=== PATIENT | female | born 1975 | race Caucasian/White ===

== ENCOUNTER → 2017-06-05 | Outpatient (CLI) | payer MEDICAID | LOC: FIMAGING 15:59 | PROVIDERS: ATTEND Midwife | DX: D25.2 Subserosal leiomyoma of uterus (principal); N88.8 Other specified noninflammatory disorders of cervix uteri ==

== ENCOUNTER 2017-10-06 08:57 | Inpatient (IN) | payer MEDICAID ==
--- NOTE | 2017-10-06 09:18 | EDPHY ---
H & P Stated Complaint: Generalised Abdo pain since 9pm, feels bloated. HPI/ROS: CHIEF COMPLAINT: Abdominal bloating and pain HISTORY OF PRESENT ILLNESS: The patient is a 42 y/o female arriving with her son complaining of worsening diffuse abdominal bloating and pain that began at 21:00 last night, 12.5 hours ago. She has a history of PCOS, endometriosis, and one episode of non-alcoholic pancreatitis 2 years ago that lead to a cholecystectomy. Since that surgery she gets "horrific pain attacks" in her RUQ with associated belching, flatulence, and nausea that aligns with her menstrual cycle. Her pain today feels different to her than those episodes. She says, "I feel like a balloon that is going to pop; like there is a giant pain bubble in my stomach." Her pain is worst in her midepigastrium. She has associated belching and flatulence with no relief. She had a normal, non-bloody bowel movement 3.5 hours ago. She feels nauseated, but has not vomited. Her pain is alleviated slightly by lying flat or standing. No urinary complaints or fever. Her last menstrual period was 2 weeks ago. REVIEW OF SYSTEMS: A ten point review of systems was performed and is negative with the exception of the items mentioned in the HPI. Past medical history: One episode of non-alcoholic pancreatitis prompting cholecystectomy; PCOS and endometriosis Past surgical history: Cholecystectomy 2 years ago, appendectomy, exploratory laparotomy Family history: Noncontributory Social history: Son at bedside. PCP: Dr. Loredo. General Appearance: Alert. Vital signs reviewed. BP 126/94. Eyes: Pupils equal and round, no conjunctival injection, no discharge. Anicteric. ENT, Mouth: Mucous membranes are moist, no oropharyngeal erythema or edema. Neck: No lymphadenopathy, supple. Respiratory: Lungs are clear to auscultation; no wheezes, rales, or rhonchi. Cardiovascular: Regular rate and rhythm; no murmur, rub, or gallop. Gastrointestinal: Abdomen is soft, diffusely tender, no masses or organomegaly , bowel sounds hypoactive. Skin: Warm and dry, no rashes on exposed skin, normal color. Back: Nontender to palpation over the thoracolumbar spine. No CVAT. Extremities: No lower extremity edema, no calf tenderness or swelling. Neurological: Alert and oriented. Moving all four extremities easily and equally. Psychiatric: Normal affect. - Personal History LMP (Females 10-55): 1-7 Days Ago Current Tetanus Diphtheria and Acellular Pertussis (TDAP): Yes - Medical/Surgical History Hx Asthma: No Hx Chronic Respiratory Disease: No Hx Diabetes: No Hx Cardiac Disease: No Hx Renal Disease: No Hx Cirrhosis: No Hx Alcoholism: No Hx HIV/AIDS: No Hx Splenectomy or Spleen Trauma: No Other PMH: Appendectomy, cholecystectomy, pancreatitis, , endometriosis. - Social History Smoking Status: Former smoker Constitutional: Initial Vital Signs Temperature (C) 36.4 C 10/06/17 09:02 Heart Rate 88 10/06/17 09:02 Respiratory Rate 18 10/06/17 09:02 Blood Pressure 126/94 H 10/06/17 09:02 O2 Sat (%) 93 10/06/17 09:02 O2 Delivery Mode Room Air Allergies/Adverse Reactions: Penicillins Allergy (Unknown, Verified 07/31/16 13:13) Medical Decision Making ED Course/Re-evaluation: This is a 42 y/o female with a history of endometriosis, PCOS, and recurrent RUQ abdominal pain 2 year post cholecystectomy who presents with a 12.5 hour history of epigastric pain and bloating. She is still able to belch and had a normal bowel movement this morning. No vomiting. She has a diffusely tender abdomen on exam. Plan for IV, labs, UA, and symptom management. 100mcg IV Fentanyl and 4mg IV Zofran administered. 1035: Reevaluated patient. She feels only mildly better and continues to have pain. Her lipase is elevated at 1771, which indicates pancreatitis. This is consistent with her presentation and I have recommended admission, which she agrees to. 1145: Spoke with hospitalist service. Dr. Petit accepts admission. 1210: 0.5mg IV Dilaudid administered for pain. - Data Points Laboratory Results: Laboratory Results 10/06/17 09:55 10/06/17 09:55 10/06/17 10/06/17 10/06/17 11:10 09:55 09:55 WBC RBC Hgb Hct MCV MCH MCHC RDW Plt Count MPV Neut % (Auto) Lymph % (Auto) [place] % (Auto) Eos % (Auto) Baso % (Auto) Nucleat RBC Rel Count Absolute Neuts (auto) Absolute Lymphs (auto) Absolute Monos (auto) Absolute Eos (auto) Absolute Basos (auto) Absolute Nucleated RBC Immature Gran % Immature Gran # Sodium 141 mEq/L mEq/L (134-144) Potassium 4.0 mEq/L mEq/L (3.5-5.2) Chloride 107 mEq/L mEq/L (97-110) Carbon Dioxide 23 mEq/l mEq/l (22-31) Anion Gap 11 mEq/L mEq/L (8-16) BUN 14 mg/dL mg/dL (7-23) Creatinine 0.6 mg/dL mg/dL (0.6-1.0) Estimated GFR > 60 Glucose 90 mg/dL mg/dL (70-100) Calcium 9.0 mg/dL mg/dL (8.5-10.4) Total Bilirubin 0.5 mg/dL mg/dL (0.1-1.4) Conjugated Bilirubin 0.2 mg/dL mg/dL (0.0-0.5) Unconjugated Bilirubin 0.3 mg/dL mg/dL (0.0-1.1) AST 20 IU/L IU/L (14-46) ALT 36 IU/L IU/L (9-52) Alkaline Phosphatase 51 IU/L IU/L (38-126) Total Protein 6.3 g/dL g/dL (6.3-8.2) Albumin 3.7 g/dL g/dL (3.5-5.0) Lipase 1771 IU/L H IU/L (23-300) Beta HCG, Qual NEGATIVE Urine Color YELLOW Urine Appearance HAZY Urine pH 5.0 (5.0-7.5) Ur Specific [place] 1.023 (1.002-1.030) Urine Protein NEGATIVE (NEGATIVE) Urine Ketones NEGATIVE (NEGATIVE) Urine Blood 2+ H (NEGATIVE) Urine Nitrate NEGATIVE (NEGATIVE) Urine Bilirubin NEGATIVE (NEGATIVE) Urine Urobilinogen NEGATIVE EU EU (0.2-1.0) Ur Leukocyte Esterase NEGATIVE (NEGATIVE) Urine RBC 3-5 /hpf H /hpf (0-3) Urine WBC 1-3 /hpf /hpf (0-3) Ur Epithelial Cells 1+ /lpf /lpf (NONE-1+) Urine Mucus 1+ /lpf /lpf (NONE-1+) Urine Glucose NEGATIVE (NEGATIVE) 10/06/17 09:55 WBC 9.66 10^3/uL H 10^3/uL (3.80-9.50) RBC 4.44 10^6/uL 10^6/uL (4.18-5.33) Hgb 13.1 g/dL g/dL (12.6-16.3) Hct 38.5 % % (38.0-47.0) MCV 86.7 fL fL (81.5-99.8) MCH 29.5 pg pg (27.9-34.1) MCHC 34.0 g/dL g/dL (32.4-36.7) RDW 11.9 % % (11.5-15.2) Plt Count 303 10^3/uL 10^3/uL (150-400) MPV 9.9 fL fL (8.7-11.7) Neut % (Auto) 64.8 % % (39.3-74.2) Lymph % (Auto) 23.2 % % (15.0-45.0) [place] % (Auto) 6.7 % % (4.5-13.0) Eos % (Auto) 4.6 % % (0.6-7.6) Baso % (Auto) 0.5 % % (0.3-1.7) Nucleat RBC Rel Count 0.0 % % (0.0-0.2) Absolute Neuts (auto) 6.26 10^3/uL 10^3/uL (1.70-6.50) Absolute Lymphs (auto) 2.24 10^3/uL 10^3/uL (1.00-3.00) Absolute Monos (auto) 0.65 10^3/uL 10^3/uL (0.30-0.80) Absolute Eos (auto) 0.44 10^3/uL H 10^3/uL (0.03-0.40) Absolute Basos (auto) 0.05 10^3/uL 10^3/uL (0.02-0.10) Absolute Nucleated RBC 0.00 10^3/uL 10^3/uL (0-0.01) Immature Gran % 0.2 % % (0.0-1.1) Immature Gran # 0.02 10^3/uL 10^3/uL (0.00-0.10) Sodium Potassium Chloride Carbon Dioxide Anion Gap BUN Creatinine Estimated GFR Glucose Calcium Total Bilirubin Conjugated Bilirubin Unconjugated Bilirubin AST ALT Alkaline Phosphatase Total Protein Albumin Lipase Beta HCG, Qual Urine Color Urine Appearance Urine pH Ur Specific [place] Urine Protein Urine Ketones Urine Blood Urine Nitrate Urine Bilirubin Urine Urobilinogen Ur Leukocyte Esterase Urine RBC Urine WBC Ur Epithelial Cells Urine Mucus Urine Glucose Medications Given: Discontinued Medications Fentanyl (Sublimaze) 100 mcg IVP EDNOW ONE Stop: 10/06/17 09:39 Last Admin: 10/06/17 09:55 Dose: 100 mcg Ondansetron HCl (Zofran) 4 mg IVP EDNOW ONE Stop: 10/06/17 09:39 Last Admin: 10/06/17 09:55 Dose: 4 mg Departure - Departure Disposition: [facility] Inpatient Acute Clinical Impression: Pancreatitis Qualifiers: Chronicity: acute Pancreatitis type: other Acute pancreatitis complication: unspecified Qualified Code(s): K85.80 - Other acute pancreatitis without necrosis or infection Condition: Fair Referrals: Andree Loredo MD [Primary Care Provider] - As per Instructions Physician Review and Approval Statement: 10/06/17 09:17 Portions of this note were transcribed by the medical officer. I, Dr. Jessica Simon, personally performed the history, physical exam, and medical decision- making; and confirmed the accuracy of the information in the transcribed note.
[2017-10-06] MEDS ORDERED: fentaNYL 100 MCG/2 ML INJ IVP ONE ×2 (09:38→12:51)
[2017-10-06] MEDS ORDERED: ONDANSETRON 4 MG/2 ML VIAL IVP ONE ×2 (09:38→12:52)
[2017-10-06 10:25] LABS: PLATELET COUNT 303 10^3/uL (150-400)
[2017-10-06] MEDS ORDERED: HYDROmorphONE/DILAUDID 1 MG/ML INJ IVP ONE (12:07)
[2017-10-06] MEDS ORDERED: fentaNYL 100 MCG/2 ML INJ ONE (12:45)
[2017-10-06] MEDS ORDERED: ONDANSETRON 4 MG/2 ML VIAL ONE (12:45)
[2017-10-06] MEDS ORDERED: KETOROLAC 15 MG/1 ML SDV IVP ONE (13:04)
[2017-10-06] MEDS ORDERED: KETOROLAC 15 MG/1 ML SDV ONE (13:06)
--- NOTE | 2017-10-06 14:28 | PDGENHP ---
History and Physical - Chief Complaint Abdominal pain - History of Present Illness This is a 42-year-old female with history of idiopathic pancreatitis presenting to the emergency department today with abdominal pain. The pain started at 9: 00 p.m. last night and was initially described as diffuse and felt like gas and indigestion. The pain worsened throughout the night. As worst was a 10/10 sharp stabbing pain in her epigastrium radiating to her back and neck. She has had some nausea but no vomiting. Her last bowel movement was this morning. Last menstrual period and to few days ago. She does tend to have bouts of abdominal pain that are associated with her menses. She denies any alcohol use. She stop smoking. History Information - Allergies/Home Medication List Allergies/Adverse Reactions: Penicillins Allergy (Unknown, Verified 07/31/16 13:13) Home Medications: Ibuprofen [Motrin (*)] 400 - 600 mg PO Q8H PRN 10/06/17 [Last Taken 10/05/17 400MG] I have personally reviewed and updated: family history, medical history, social history, surgical history - Past Medical History Additional medical history: Morbid obesity, hypertriglyceridemia, endometriosis , polycystic ovarian syndrome - Surgical History Reports: appendectomy (2000), cholecystectomy (2014) - Family History Additional family history: Alcohol abuse - Social History Smoking Status: Former smoker Alcohol Use: None Drug Use: None Review of Systems Review of Systems: ROS: 10pt was reviewed & negative except for what was stated in HPI & below Physical Exam Physical Exam: Temp Pulse Resp BP Pulse Ox 36.7 C 69 16 115/90 H 93 10/06/17 14:00 10/06/17 14:00 10/06/17 14:00 10/06/17 14:00 10/06/17 14:00 Constitutional: no apparent distress, appears nourished, not in pain Eyes: PERRL, anicteric sclera, EOMI Ears, Nose, Mouth, Throat: moist mucous membranes, hearing normal, ears appear normal, no oral mucosal ulcers Cardiovascular: regular rate and rhythym, no murmur, rub, or gallop, No edema Respiratory: no respiratory distress, no rales or rhonchi, clear to auscultation Gastrointestinal: normoactive bowel sounds, distension, other (Soft), No tenderness, No guarding, No rebound Genitourinary: no bladder fullness, no bladder tenderness Skin: warm, normal color, no rashes or abrasions, no fluctuance, no induration, No mottled Musculoskeletal: full muscle strength, no muscle tenderness, normal joint ROM, no joint effusions Neurologic: AAOx3, CN II-XII Intact, No facial droop Psychiatric: interacting appropriately, not anxious, not encephalopathic, thought process linear Lymph, Heme, Immunologic: no cervical LAD, no supraclavicular LAD Lab Data & Imaging Review 10/06/17 09:55 10/06/17 09:55 WBC 9.66 10^3/uL (3.80-9.50) H 10/06/17 09:55 RBC 4.44 10^6/uL (4.18-5.33) 10/06/17 09:55 Hgb 13.1 g/dL (12.6-16.3) 10/06/17 09:55 Hct 38.5 % (38.0-47.0) 10/06/17 09:55 MCV 86.7 fL (81.5-99.8) 10/06/17 09:55 MCH 29.5 pg (27.9-34.1) 10/06/17 09:55 MCHC 34.0 g/dL (32.4-36.7) 10/06/17 09:55 RDW 11.9 % (11.5-15.2) 10/06/17 09:55 Plt Count 303 10^3/uL (150-400) 10/06/17 09:55 MPV 9.9 fL (8.7-11.7) 10/06/17 09:55 Neut % (Auto) 64.8 % (39.3-74.2) 10/06/17 09:55 Lymph % (Auto) 23.2 % (15.0-45.0) 10/06/17 09:55 [place] % (Auto) 6.7 % (4.5-13.0) 10/06/17 09:55 Eos % (Auto) 4.6 % (0.6-7.6) 10/06/17 09:55 Baso % (Auto) 0.5 % (0.3-1.7) 10/06/17 09:55 Nucleat RBC Rel Count 0.0 % (0.0-0.2) 10/06/17 09:55 Absolute Neuts (auto) 6.26 10^3/uL (1.70-6.50) 10/06/17 09:55 Absolute Lymphs (auto) 2.24 10^3/uL (1.00-3.00) 10/06/17 09:55 Absolute Monos (auto) 0.65 10^3/uL (0.30-0.80) 10/06/17 09:55 Absolute Eos (auto) 0.44 10^3/uL (0.03-0.40) H 10/06/17 09:55 Absolute Basos (auto) 0.05 10^3/uL (0.02-0.10) 10/06/17 09:55 Absolute Nucleated RBC 0.00 10^3/uL (0-0.01) 10/06/17 09:55 Immature Gran % 0.2 % (0.0-1.1) 10/06/17 09:55 Immature Gran # 0.02 10^3/uL (0.00-0.10) 10/06/17 09:55 Sodium 141 mEq/L (134-144) 10/06/17 09:55 Potassium 4.0 mEq/L (3.5-5.2) 10/06/17 09:55 Chloride 107 mEq/L (97-110) 10/06/17 09:55 Carbon Dioxide 23 mEq/l (22-31) 10/06/17 09:55 Anion Gap 11 mEq/L (8-16) 10/06/17 09:55 BUN 14 mg/dL (7-23) 10/06/17 09:55 Creatinine 0.6 mg/dL (0.6-1.0) 10/06/17 09:55 Estimated GFR > 60 10/06/17 09:55 Glucose 90 mg/dL (70-100) 10/06/17 09:55 Calcium 9.0 mg/dL (8.5-10.4) 10/06/17 09:55 Total Bilirubin 0.5 mg/dL (0.1-1.4) 10/06/17 09:55 Conjugated Bilirubin 0.2 mg/dL (0.0-0.5) 10/06/17 09:55 Unconjugated Bilirubin 0.3 mg/dL (0.0-1.1) 10/06/17 09:55 AST 20 IU/L (14-46) 10/06/17 09:55 ALT 36 IU/L (9-52) 10/06/17 09:55 Alkaline Phosphatase 51 IU/L (38-126) 10/06/17 09:55 Total Protein 6.3 g/dL (6.3-8.2) 10/06/17 09:55 Albumin 3.7 g/dL (3.5-5.0) 10/06/17 09:55 Lipase 1771 IU/L (23-300) H 10/06/17 09:55 Beta HCG, Qual NEGATIVE 10/06/17 09:55 Urine Color YELLOW 10/06/17 11:10 Urine Appearance HAZY 10/06/17 11:10 Urine pH 5.0 (5.0-7.5) 10/06/17 11:10 Ur Specific [place] 1.023 (1.002-1.030) 10/06/17 11:10 Urine Protein NEGATIVE (NEGATIVE) 10/06/17 11:10 Urine Ketones NEGATIVE (NEGATIVE) 10/06/17 11:10 Urine Blood 2+ (NEGATIVE) H 10/06/17 11:10 Urine Nitrate NEGATIVE (NEGATIVE) 10/06/17 11:10 Urine Bilirubin NEGATIVE (NEGATIVE) 10/06/17 11:10 Urine Urobilinogen NEGATIVE EU (0.2-1.0) 10/06/17 11:10 Ur Leukocyte Esterase NEGATIVE (NEGATIVE) 10/06/17 11:10 Urine RBC 3-5 /hpf (0-3) H 10/06/17 11:10 Urine WBC 1-3 /hpf (0-3) 10/06/17 11:10 Ur Epithelial Cells 1+ /lpf (NONE-1+) 10/06/17 11:10 Urine Mucus 1+ /lpf (NONE-1+) 10/06/17 11:10 Urine Glucose NEGATIVE (NEGATIVE) 10/06/17 11:10 Assessment & Plan Assessment: This is a 42-year-old female with history of idiopathic pancreatitis presenting with: # abdominal pain in the setting of elevated lipase most consistent with pancreatitis of unclear etiology -start clear liquid diet -IV hydration -treat pain and nausea supportively with both oral, IV pain medications, and antiemetics -check triglyceride level -monitor for signs and symptoms of obstruction Patient will be placed on observation. Further hospital course will depend on her improvement overnight
[2017-10-06] MEDS ORDERED: KETOROLAC 30 MG/1 ML SDV IVP PRN (14:30)
[2017-10-06] MEDS ORDERED: ACETAMINOPHEN 325 MG TAB PO PRN (14:30)
[2017-10-06] MEDS ORDERED: HYDROmorphONE/DILAUDID 2 MG/ML INJ IVP PRN (14:30)
[2017-10-06] MEDS ORDERED: PROMETHAZINE HCL 25 MG/ML INJ IVP PRN (14:30)
[2017-10-06] MEDS: oxyCODONE IR 5 MG TAB PO PRN ×2 (15:06→19:42)
[2017-10-06] MEDS: NS 1,000 ML IV SCH ×2 (15:10→19:31)
[2017-10-06] MEDS: KETOROLAC 30 MG/1 ML SDV IVP PRN (19:08)
[2017-10-06] MEDS: ONDANSETRON 4 MG/2 ML VIAL IVP PRN (20:43)
[2017-10-07] MEDS: ONDANSETRON 4 MG/2 ML VIAL IVP PRN ×2 (00:39→13:32)
[2017-10-07] MEDS: NS 1,000 ML IV SCH ×3 (00:39→20:34)
[2017-10-07] MEDS: KETOROLAC 30 MG/1 ML SDV IVP PRN ×4 (00:42→20:31)
[2017-10-07] MEDS: oxyCODONE IR 5 MG TAB PO PRN ×2 (00:46→13:28)
[2017-10-07 04:13] LABS: PLATELET COUNT 246 10^3/uL (150-400)
--- NOTE | 2017-10-07 09:48 | ASMTCMCOM ---
CM Note CM Note Notes: 10/06/2017 Case Management Note Reviewed chart. There are no case management d/c needs identified d/t pt age, employment status and activity levels prior to admission. There are no PT or OT evals ordered at this time. Case Management d/c poc: independent with follow up as directed. Case Management available if needs change. Date Signed: 10/07/2017 09:47 AM Electronically Signed By:Josefa Patel RN
--- NOTE | 2017-10-07 13:06 | HOSPPROG ---
Hospitalist Progress Note Assessment/Plan: This is a 42-year-old female with history of idiopathic pancreatitis presenting with: # abdominal pain in the setting of elevated lipase most consistent with pancreatitis of unclear etiology vs sbo (still not taking adequate Pos) -cont clear liquid diet -IV hydration -treat pain and nausea supportively with both oral, IV pain medications, and antiemetics -kub change to inpatient status Subjective: continues to have abd pain and bloating. reports minimal flatus. belching. not eating or drinking. no emesis Objective: Vital Signs Temp Pulse Resp BP Pulse Ox 36.9 C 69 17 116/63 90 L 10/07/17 11:50 10/07/17 11:50 10/07/17 11:50 10/07/17 11:50 10/07/17 11:50 Laboratory Results 10/07/17 03:27 10/07/17 03:27 10/06/17 10/07/17 10/08/17 05:59 05:59 05:59 Intake Total 2620 Output Total 500 Balance 2120 - Physical Exam Constitutional: no apparent distress, appears nourished, not in pain Cardiovascular: regular rate and rhythym, no murmur, rub, or gallop Respiratory: no respiratory distress, no rales or rhonchi, clear to auscultation Gastrointestinal: normoactive bowel sounds, soft, non-tender abdomen, tenderness (diffuse), distension, No guarding, No rebound ICD10 Worksheet Patient Problems: Problems Problem Status Onset Abdominal pain Acute Morbid obesity Acute Intractable abdominal pain Acute Pancreatitis Acute
--- NOTE | 2017-10-07 13:24 | PDMN ---
Medical Necessity Medical necessity: C/M review: est. > 2 MN LOS for eval and TX of acute and persistent abdominal pain in the setting of elevated lipase most consistent with pancreatitis of unclear etiology versus small bowel obstruction, inadequate oral intake requiring planned 10/07/2017 KUB xray, ongoing IV fluids , IV pain medications, antiemetics, comorbid history of idiopathic pancreatitis per 10/07/2017 Hospitalist progress note.
[2017-10-07] MEDS ORDERED: HYDROmorphONE/DILAUDID 1 MG/ML INJ IVP PRN (16:00)
[2017-10-07] MEDS: SIMETHICONE 80 MG TAB CHEW PO SCH ×2 (20:30→20:31)
[2017-10-08] MEDS: KETOROLAC 30 MG/1 ML SDV IVP PRN ×4 (02:29→21:29)
[2017-10-08 04:55] LABS: PLATELET COUNT 221 10^3/uL (150-400)
[2017-10-08] MEDS: SIMETHICONE 80 MG TAB CHEW PO SCH ×4 (08:45→21:25)
[2017-10-08] MEDS: ENOXAPARIN 40 MG/0.4 ML SYR SC SCH ×2 (08:48→21:25)
[2017-10-08] MEDS ORDERED: IOPAMIDOL (ISOVUE-300) 100 ML BTL ONE (12:29)
[2017-10-08] MEDS ORDERED: GADOBUTROL 10 ML VIAL IVP ONE (14:21)
--- NOTE | 2017-10-08 16:55 | HOSPPROG ---
Hospitalist Progress Note Assessment/Plan: * SBO - suspect transient internal hernia that is now resolved -advance diet * Morbid obesity BMI 42 * ? autoimmune pancreatitis -abnormal appearance by imaging * Chronic RUQ pain s/p carlos -this pain is different than usual Subjective: abd distention without relief. After CT now with diarrhea Objective: Vital Signs Temp Pulse Resp BP Pulse Ox 36.7 C 54 L 16 123/66 H 93 10/08/17 16:00 10/08/17 16:00 10/08/17 16:00 10/08/17 16:00 10/08/17 16:00 Laboratory Results 10/08/17 04:39 10/08/17 04:39 10/07/17 10/08/17 10/09/17 05:59 05:59 05:59 Intake Total 959 1000 Output Total 775 Balance 184 1000 - Physical Exam Constitutional: no apparent distress, appears nourished, not in pain Cardiovascular: regular rate and rhythym, no murmur, rub, or gallop Respiratory: no respiratory distress, no rales or rhonchi, clear to auscultation Gastrointestinal: normoactive bowel sounds, soft, non-tender abdomen, no palpable masses Skin: no rashes or abrasions, no fluctuance, no induration Neurologic: AAOx3, sensation intact bilaterally Psychiatric: interacting appropriately, not anxious, not encephalopathic, thought process linear ICD10 Worksheet Patient Problems: Problems Problem Status Onset Pancreatitis Acute Abdominal pain Acute Intractable abdominal pain Acute Morbid obesity Acute
[2017-10-09 07:40] VITALS: BP 144/108; PULSE 71; RESP 16; TEMP 98.1; O2SAT 96
[2017-10-09] MEDS: SIMETHICONE 80 MG TAB CHEW PO SCH (09:35)
[2017-10-09] MEDS: ENOXAPARIN 40 MG/0.4 ML SYR SC SCH (09:36)
[2017-10-09] MEDS: KETOROLAC 30 MG/1 ML SDV IVP PRN (09:56)
--- NOTE | 2017-10-10 09:33 | ASDISCHSUM ---
Discharge Information Plan Status:Home with No Needs Medically Cleared to Leave:10/08/2017 Discharge Date:10/09/2017 11:07 AM CM D/C Disposition:Home, Routine, Self-Care ADT D/C Disposition:Home, Routine, Self-Care Projected Discharge Date:10/09/2017 11:00 AM Transportation at D/C:Self Discharge Delay Reason: Follow-Up Date:10/09/2017 11:00 AM Discharge Slot:1 - 8:01 am - 12:00 noon Final Diagnosis:Abdominal pain Placement Information Patient Contact Information Contact Name:GONZALO Relationship:Mother Address: City:[place] Alternate Phone: State/Zip Code:[place] Email: Financial Information Financial Class: Primary Plan Desc:[employer] [place] Primary Plan Number:[id number] Secondary Plan Desc: Secondary Plan Number: Assessment Information [facility] CM Progress Note CM Note CM Note Notes: 10/06/2017 Case Management Note Reviewed chart. There are no case management d/c needs identified d/t pt age, employment status and activity levels prior to admission. There are no PT or OT evals ordered at this time. Case Management d/c poc: independent with follow up as directed. Case Management available if needs change. Date Signed: 10/07/2017 09:47 AM Electronically Signed By:Josefa Patel RN Case Management Discharge Plan Note Case Management Discharge Discharge Order Complete? Answers: Yes Patient to Obtain Answers: Independently Medications Transportation Arranged Answers: Other Notes: Self Transport will Pick (Date 10/09/2017 11:00 AM & Time) Discharge Comments Notes: Patient has been discharged. No discharge needs. Date Signed: 10/09/2017 10:56 AM Electronically Signed By:Harmony Sesay LCSW Intervention Information
--- NOTE | 2017-10-12 01:15 | GDS ---
[f rep st] DISCHARGE SUMMARY SERVICE: [facility] Hospitalist. CONSULTS: None. PROCEDURES: Abdominal MRI, abdominal CT. Abdominal x-ray: Partial/early small bowel obstruction. P ossible new mass versus unusual knuckle of bowel anterior to the inferior vena cava on CT. MRI of th at region shows transient gas, dilated loop of bowel, question transiently obstructed internal hernia or small-bowel diverticulum. No mass noted on abdominal MRI. ADMISSION DIAGNOSIS: Abdominal pain, concerning for recurrent pancreatitis. DISCHARGE DIAGNOSIS: Abdominal pain, concerning for recurrent pancreatitis, resolved. HOSPITAL COURSE: The patient came to the emergency department because of worsening abdominal pain an d nausea. She has a history of idiopathic pancreatitis and was admitted for IV fluids and further ev aluation. She was started on a clear liquid diet and given IV hydration and IV pain medications. Liliana lindsay also required IV antiemetics. Several imaging studies were done, as noted above. Initial lipase w as 177. Over the course of her stay, her symptoms greatly improved and, on the day of discharge, liliana lindsay was tolerating a diet with minimal pain or nausea. She was discharged home to follow up with her [facility] care provider, Dr. Mariel Loredo. It was also suggested that she follow up with her gastroenter ologist. DISCHARGE MEDICATIONS: Ibuprofen if needed. DISCHARGE INSTRUCTIONS: She is instructed to continue with a fairly bland diet and gradually return to regular diet over the course of several days. If any time she had worsening pain, onset of fever, diarrhea, vomiting, or other concerns, she should return to the emergency department for re-evaluati on or to her primary care provider. She is instructed to follow up with Dr. Loredo within the next 3 -5 days and with her executive account manager after that (regarding possible internal hernia noted on MRI). /[id number]/MODL
== END 2017-10-09 11:07 | disposition home or self-care (01) | DRG 439 ==
LOC: F2W 13:48 → OBSVTOIN 10-07 13:06 → F3N 10-07 17:36
PROVIDERS: ADMIT Family Medicine; ATTEND Family Medicine
DX: K86.1 Other chronic pancreatitis (principal); K56.600 Partial intestinal obstruction, unspecified as to cause; K46.9 Unspecified abdominal hernia without obstruction or gangrene; E66.01 Morbid (severe) obesity due to excess calories; Z68.42 Body mass index [BMI] 45.0-49.9, adult; R14.0 Abdominal distension (gaseous); R10.84 Generalized abdominal pain; Z87.891 Personal history of nicotine dependence; Z87.42 Personal history of other diseases of the female genital tract
CPT/HCPCS: A9585; G0378; J1170; J1650; J1885; J2405; J2550; J3010; Q9967

== ENCOUNTER 2018-07-19 05:32 | Observation (INO) | payer MEDICAID ==
[2018-07-19] MEDS ORDERED: ONDANSETRON 4 MG/2 ML VIAL IVP ONE (05:43)
[2018-07-19] MEDS ORDERED: NS 1,000 ML IV ONE (05:43)
--- NOTE | 2018-07-19 05:45 | EDPHY ---
H & P Stated Complaint: PAIN TO RUQ JUST LIKE WHEN HER GALLBLADDER WAS REMOVED Time Seen by Provider: 07/19/18 05:38 HPI/ROS: HPI The patient presents with acute onset of right upper quadrant abdominal pain which began at 4:00 a.m. And awoke her from sleep. She has had multiple similar episodes, usually able to tolerate them at home, however this is more severe. She took a shower with hopes that the pain would go away, however it persisted. It is associated with nausea and vomiting. Her menstrual cycle began about 7 days ago and now has stopped. She has had pain over the last several days though has been able to manage it at home. She sometimes notes that when she rolls her abdomen on an exercise ball she is able to belch and the pain is improved. She was last admitted to the hospital in October of this year. She underwent abdominal CT scan an MR I. MRI revealed possible internal hernia or small-bowel diverticulum. She improved after several days of treatment. She was supposed to follow up with GI, however did not; she felt discouraged after having normal endoscopy and colonoscopy with them previously. She is followed by geology instructor and does have a history of PCOS and endometriosis which was diagnosed in 1998. However her equipment cleaner does not think this abdominal pain is related to either of these. REVIEW OF SYSTEMS 10 systems were reviewed and negative with the exception of the elements mentioned in the history of present illness. PMHx: Endometriosis, PCOS, idiopathic pancreatitis, primary care is Dr. Loredo Status post cholecystectomy about 3 years ago after non alcoholic pancreatitis episode, status post appendectomy, exploratory laparotomy Soc Hx: Here with her roommate and co-worker PHYSICAL General Appearance: Alert, uncomfortable, diaphoretic Eyes: Pupils equal and round no pallor or injection ENT, Mouth: Mucous membranes moist Respiratory: There are no retractions, lungs are clear to auscultation Cardiovascular: Regular rate and rhythm Gastrointestinal: Abdomen is soft and tender in the epigastrium and right upper quadrant, no masses, bowel sounds normal Neurological: A&O, moves all extremities Skin: Warm and dry, no rashes Musculoskeletal: Neck is supple non tender Extremities: symmetrical, full range of motion Psychiatric: Patient is oriented X 3, there is no agitation Source: Patient Exam Limitations: No limitations - Personal History LMP (Females 10-55): 1-7 Days Ago Current Tetanus/Diphtheria Vaccine: Yes Current Tetanus Diphtheria and Acellular Pertussis (TDAP): Yes - Medical/Surgical History Hx Asthma: No Hx Chronic Respiratory Disease: No Hx Diabetes: No Hx Cardiac Disease: No Hx Renal Disease: No Hx Cirrhosis: No Hx Alcoholism: No Hx HIV/AIDS: No Hx Splenectomy or Spleen Trauma: No Other PMH: Appendectomy, cholecystectomy, pancreatitis, , endometriosis. - Social History Smoking Status: Former smoker Constitutional: Initial Vital Signs Temperature (C) 36.5 C 07/19/18 05:37 Heart Rate 89 07/19/18 05:37 Respiratory Rate 18 07/19/18 05:37 Blood Pressure 130/75 H 07/19/18 05:37 O2 Sat (%) 98 07/19/18 05:37 O2 Delivery Mode Room Air Allergies/Adverse Reactions: Penicillins Allergy (Unknown, Verified 07/19/18 05:39) Home Medications: Medication Instructions Recorded Ibuprofen [Motrin (*)] 400 - 600 mg PO Q8H PRN 10/06/17 Medical Decision Making Differential Diagnosis: 42-year-old female with obesity, history of idiopathic pancreatitis, 3 years status post cholecystectomy, status post appendectomy, history of endometriosis and PCOS presents from home with severe episode of right upper quadrant abdominal pain associated with nausea and vomiting. This feels like prior episodes that she has had without clearcut cause of pain. Often times she is able to manage them at home, however in times like this morning the pain is so severe that she cannot tolerate it. She does notice some correlation with her menstrual cycle. She was admitted to the hospital about 10 months ago and was found to have an internal hernia on her MRI though she has not had follow-up for this. The cause of her pain is not entirely clear right now, could be related to idiopathic pancreatitis, post cholecystectomy syndrome, endometriosis, internal hernia. In the emergency department, patient was given IV fluids, Dilaudid, Toradol with some improvement in her pain. Labs were checked and revealed a mild leukocytosis, lipase and liver tests are otherwise normal. Patient's pain quickly recurred and she needed repeat doses of Dilaudid. I do not feel she will do well at home. I have discussed the case with the hospitalist Dr. Hebert and we will admit her. We have decided to hold off on imaging studies now is the patient has had multiple recent CT scans of her abdomen. If she does not improved throughout the course of the day, then further imaging can be pursued. - Data Points Laboratory Results: Laboratory Results 07/19/18 06:07 07/19/18 06:07 07/19/18 07/19/18 06:07 06:07 WBC 13.87 10^3/uL H 10^3/uL (3.80-9.50) RBC 4.86 10^6/uL 10^6/uL (4.18-5.33) Hgb 14.0 g/dL g/dL (12.6-16.3) Hct 40.8 % % (38.0-47.0) MCV 84.0 fL fL (81.5-99.8) MCH 28.8 pg pg (27.9-34.1) MCHC 34.3 g/dL g/dL (32.4-36.7) RDW 12.0 % % (11.5-15.2) Plt Count 366 10^3/uL 10^3/uL (150-400) MPV 9.6 fL fL (8.7-11.7) Neut % (Auto) 68.6 % % (39.3-74.2) Lymph % (Auto) 20.8 % % (15.0-45.0) [place] % (Auto) 6.8 % % (4.5-13.0) Eos % (Auto) 3.0 % % (0.6-7.6) Baso % (Auto) 0.4 % % (0.3-1.7) Nucleat RBC Rel Count 0.0 % % (0.0-0.2) Absolute Neuts (auto) 9.53 10^3/uL H 10^3/uL (1.70-6.50) Absolute Lymphs (auto) 2.89 10^3/uL 10^3/uL (1.00-3.00) Absolute Monos (auto) 0.94 10^3/uL H 10^3/uL (0.30-0.80) Absolute Eos (auto) 0.41 10^3/uL H 10^3/uL (0.03-0.40) Absolute Basos (auto) 0.05 10^3/uL 10^3/uL (0.02-0.10) Absolute Nucleated RBC 0.00 10^3/uL 10^3/uL (0-0.01) Immature Gran % 0.4 % % (0.0-1.1) Immature Gran # 0.05 10^3/uL 10^3/uL (0.00-0.10) Sodium 140 mEq/L mEq/L (135-145) Potassium 3.2 mEq/L L mEq/L (3.3-5.0) Chloride 106 mEq/L mEq/L (97-110) Carbon Dioxide 20 mEq/l L mEq/l (22-31) Anion Gap 14 mEq/L mEq/L (8-16) BUN 15 mg/dL mg/dL (7-23) Creatinine 0.6 mg/dL mg/dL (0.6-1.0) Estimated GFR > 60 Glucose 160 mg/dL H mg/dL (70-100) Calcium 9.3 mg/dL mg/dL (8.5-10.4) Total Bilirubin 0.7 mg/dL mg/dL (0.1-1.4) Conjugated Bilirubin 0.2 mg/dL mg/dL (0.0-0.5) Unconjugated Bilirubin 0.5 mg/dL mg/dL (0.0-1.1) AST 30 IU/L IU/L (14-46) ALT 41 IU/L IU/L (9-52) Alkaline Phosphatase 60 IU/L IU/L (38-126) Total Protein 7.5 g/dL g/dL (6.3-8.2) Albumin 4.2 g/dL g/dL (3.5-5.0) Lipase 106 IU/L IU/L (23-300) Medications Given: Discontinued Medications Hydromorphone HCl (Dilaudid) 1 mg IVP EDNOW ONE Stop: 07/19/18 05:52 Last Admin: 07/19/18 05:55 Dose: 1 mg Hydromorphone HCl (Dilaudid) 1 mg IVP EDNOW ONE Stop: 07/19/18 06:32 Last Admin: 07/19/18 06:32 Dose: 1 mg Sodium Chloride (Ns) 1,000 mls @ 0 mls/hr IV EDNOW ONE; Wide Open PRN Reason: Protocol Stop: 07/19/18 05:44 Last Admin: 07/19/18 05:55 Dose: 1,000 mls Ketorolac Tromethamine (Toradol) 15 mg IVP EDNOW ONE Stop: 07/19/18 06:11 Last Admin: 07/19/18 06:10 Dose: 15 mg Ondansetron HCl (Zofran) 4 mg IVP EDNOW ONE Stop: 07/19/18 05:44 Last Admin: 07/19/18 05:50 Dose: 4 mg Departure - Departure Disposition: [facility] Inpatient Acute Clinical Impression: RUQ abdominal pain Vomiting Qualifiers: Vomiting type: unspecified Vomiting Intractability: non-intractable Nausea presence: with nausea Qualified Code(s): R11.2 - Nausea with vomiting, unspecified Condition: Fair Referrals: Andree Loredo MD [Primary Care Provider] - As per Instructions
[2018-07-19] MEDS ORDERED: HYDROmorphONE/DILAUDID 1 MG/ML INJ ONE (05:48)
[2018-07-19] MEDS ORDERED: HYDROmorphONE/DILAUDID 1 MG/ML INJ IVP ONE ×3 (05:51→11:05)
[2018-07-19] MEDS ORDERED: KETOROLAC 15 MG/1 ML SDV ONE (06:08)
[2018-07-19] MEDS ORDERED: KETOROLAC 15 MG/1 ML SDV IVP ONE (06:10)
[2018-07-19 06:13] LABS: PLATELET COUNT 366 10^3/uL (150-400)
[2018-07-19] MEDS ORDERED: ACETAMINOPHEN 325 MG TAB PO PRN (06:48)
[2018-07-19] MEDS ORDERED: ONDANSETRON DISINTEGRATING 4 MG TAB PO PRN (06:48)
[2018-07-19] MEDS ORDERED: HYDROCODONE/APAP 5/325 TAB PO PRN (06:48)
[2018-07-19] MEDS ORDERED: ONDANSETRON 4 MG/2 ML VIAL IVP PRN (06:48)
[2018-07-19] MEDS ORDERED: LORazepam 2 MG/ML INJ IVP PRN (06:48)
[2018-07-19] MEDS ORDERED: IBUPROFEN 200 MG TAB PO PRN (06:48)
[2018-07-19] MEDS ORDERED: NS 1,000 ML IV SCH (07:00)
[2018-07-19] MEDS ORDERED: POTASSIUM CL 20 MEQ/15 ML UDCUP PO ONE ×2 (07:33→10:30)
[2018-07-19] MEDS ORDERED: HYOSCYAMINE SULFATE 0.125 MG TAB PO PRN (07:54)
[2018-07-19] MEDS ORDERED: KETOROLAC 30 MG/1 ML SDV IVP PRN (07:54)
--- NOTE | 2018-07-19 08:48 | GHP ---
DATE OF ADMISSION: 07/19/2018 SOURCE: Patient provides history, appears reliable. EMR was reviewed from patient's previous hospit alizations over the last several years. Case discussed with ED provider. CHIEF COMPLAINT: Right upper quadrant epigastric abdominal pain. HISTORY OF PRESENT ILLNESS: This is a pleasant 42-year-old female with past medical history signific ant for endometriosis, PCOS, history of fibroids, abdominal hernia, and previous diagnosis of idiopat hic pancreatitis, who presents to the emergency department today with complaints of severe right uppe r quadrant and epigastric abdominal pain associated with intractable nausea and vomiting. The patisebas martinez reports since her discharge in September 2017, that she has continued to have intermittent episodes of her pain, which she normally has been able to manage at home. She has had multiple recommendation s for followup and medication trials, and consistently has not followed through with recommendations either due to cost or followup. The patient reports that she has also been battling upper respirator y type symptoms and her roommate is also having similar symptoms of upper respiratory rhinorrhea, con gestion, sore throat, and subjective fevers chills. Today, patient's abdominal pain became increasin gly worse, and she developed subsequent nausea and vomiting without any hematemesis. Patient denies any diarrhea. Last bowel movement was yesterday. The patient reports when her abdominal pain occurs , she generally can take some simethicone or massage her abdomen with improvement in her symptoms. H owever, her pain escalated to the point where she reported intolerable abdominal pain. REVIEW OF SYSTEMS: GENERAL: Positive for subjective fevers, chills, over the last several days with upper respiratory symptoms. SKIN: No reported rashes, sores. ENT: Patient reports congestion and sore throat. EYES: No acute changes in vision or ocular pain. CARDIOVASCULAR: Denies any chest p ain, palpitations. RESPIRATORY: No shortness of breath or cough. GASTROINTESTINAL: Abdominal pain . See HPI. The patient is also complaining of increased bloating. : No dysuria or hematuria. M USCULOSKELETAL: Patient reports diffuse myalgias worse with fevers. No joint pain. NEUROLOGIC: Oc casional headache improved after Toradol in the ED. No numbness, tingling, or focal deficits. PSYCH IATRIC: Anxiety with increased pain. Remainder of review of systems negative except as noted above. ALLERGIES: Penicillin. HOME MEDICATIONS: Ibuprofen p.r.n.. PAST MEDICAL HISTORY: Significant for endometriosis diagnosed in 1998. Patient reports she also has a diagnosed history of multiple adhesions reported during her cholecystectomy, history of PCOS, idio pathic pancreatitis, fibroids, multiple CT scans, and abdominal hernia. PAST SURGICAL HISTORY: Significant for cholecystectomy, appendectomy, tonsillectomy, adenoidectomy, exploratory laparotomy, , EGD, and colonoscopy. FAMILY HISTORY: The patient's maternal aunt with history of neuroblastoma and uterine tumor. Anothe r maternal aunt with history of lung cancer. Maternal grandfather with lung cancer. Father age 65 from alcohol and COPD complications. SOCIAL HISTORY: Patient quit smoking. Has a 55-mceg-adhj history. She does not drink any alcohol. She does use occasional marijuana, but no other illicit drugs. CODE STATUS: Full. PHYSICAL EXAMINATION: VITAL SIGNS: Upon arrival to the ED, blood pressure 130/75, heart rate is 89, respiratory rate 18, O2 saturation 98% on room air with temperature 36.5. Current vital signs: Blo od pressure 146/66, heart rate 63, respiratory rate 18, O2 sat is 96% on room air, temperature 36.6. GENERAL: Patient in no acute distress. She is lying in bed. Appears uncomfortable, acutely ill, b ut nontoxic, and fatigued. Pleasant, morbidly obese. HEAD: Normocephalic, atraumatic. EYES: Extr aocular muscles grossly intact. Pupils equal, round decreased reactivity to light bilaterally, but s ymmetric. No scleral icterus, conjunctival injection. ENT: Mucous membranes appear dry. Minimal o ropharyngeal erythema. No exudates. Dentition intact. NECK: Supple trachea midline. CARDIOVASCUL AR: Regular rate and rhythm. Slightly distant heart sounds due to body habitus. No murmurs, rubs, or gallops appreciated, but limited exam due to body habitus. RESPIRATORY: Unlabored breathing. Mercedes ngs are clear to auscultation bilaterally. No wheezes, rales, or rhonchi appreciated. ABDOMEN: Obe se, soft. Patient with some tenderness to palpation in the right upper quadrant epigastric region, b ut no rebound, guarding, masses are appreciated. Abdomen is nondistended. Hypoactive bowel sounds. : No suprapubic tenderness to palpation. No Blanchard catheter in place. EXTREMITIES: No cyanosis, clubbing, edema. 2+ pedal pulses bilaterally and symmetric. NEUROLOGIC: Grossly nonfocal. No fac ial drooping. Moves all extremities. Sits up independently. MUSCULOSKELETAL: Moves all extremitie s as noted above. PSYCHIATRIC: Patient does appear a little bit anxious, but she is pleasant and co operative. Thought process, content, and questions are appropriate. LABORATORY STUDIES: WBC 13.87, H and H 14.0 and 47.8, MCV 84.0, platelet count is 366, no bands. So dium is 140, potassium 3.2, chloride 126, CO2 is 20, anion gap 14, BUN 15, creatinine 0.6.. GFR grea ter than 60. Glucose is 160, calcium is 9.3, total bilirubin 0.7, ALT 41, AST 30, alkaline phosphata se 68, total protein 7.5, albumin 4.2, amylase 41, lipase is 106. ASSESSMENT AND PLAN: A very pleasant 42-year-old female with a past medical history significant for intermittent episodes of abdominal pain, thought possibly due to idiopathic pancreatitis, endometrios is, PCOS, fibroids, hernia, who presents to the emergency department with intractable right upper andrés drant abdominal pain and epigastric pain with nausea and vomiting. 1. Intractable abdominal pain. Patient reports there is some improvement massage of her abdomen. S he does have a history of hernia, which she did not follow up with general surgeon for further evalua tion. She also reports there is a history of noted adhesions on previous surgical procedures, but th ere is no evidence of distention. Her nausea and vomiting are controlled. She does not have any kno wn tympanic bowel sounds, and I do not suspect obstruction at this point. She has had multiple CT sc ans previously. I do not feel at this time given her benign abdominal exam that she requires additio nal imaging at this time. Patient has received Dilaudid and Toradol in the emergency department. Sh angélica was previously recommended to do a trial of Bentyl, which she states did not seem to significantly affect her symptoms. She has not tried any hyoscyamine as there was some concern that this could be related to irritable bowel syndrome, so we will have that available p.r.n. for trial. Also Ativan p. r.n. for significant spasm pain. Patient's LFTs are within normal limits. Her lipase, which was gurinder vated previously is within normal limits. I did check an amylase also, which was normal. At this po int, I do not suspect pancreatitis. This does appear to be more possibly abdominal wall related vers us less likely obstruction or endometriosis related. 2. Intractable nausea and vomiting have been controlled with Zofran at this time. We will continue with p.r.n. 3. Dehydration. We will continue with IV fluid hydration. Patient did receive some supplementation in the emergency department. We will continue until patient can appropriately supplement orally. 4. Leukocytosis is likely reactive in setting of nausea, vomiting, and pain. The patient is afebril e. Additionally, she does report some symptoms of upper respiratory symptoms, but her chest exam is completely normal. We will continue to monitor. She has been afebrile here. 5. Hypokalemia is related to gastrointestinal losses in setting of nausea and vomiting. Replacement has been ordered. 6. Hyperglycemia. Nonfasting lab. No previous history of diabetes. The patient should follow up w ith primary care physician. 7. Fluid, electrolyte, and nutrition. IV fluids as noted above. Potassium replacement as noted abo ve. Advance diet as tolerated. 8. COR status full. 9. Prophylaxis: Sequential compression devices. Encourage mobilization. Consider anticoagulation if patient should stay an additional day as per day team. 10. Disposition: Patient will be admitted to observation status on the Medical/Surgical floor for hilaria huerta management of her acute abdominal pain. /[id number]/MODL
[2018-07-19] MEDS ORDERED: PROTOCOL POTASSIUM 1 DOSE MISC PRN (13:22)
[2018-07-19] MEDS ORDERED: PROTOCOL MAGNESIUM 1 DOSE IV PRN (13:22)
[2018-07-19] MEDS: ONDANSETRON 4 MG/2 ML VIAL IVP SCH ×3 (14:36→21:47)
[2018-07-19] MEDS: PANTOPRAZOLE SODIUM 40 MG VIAL IVP SCH ×2 (14:41→21:47)
--- NOTE | 2018-07-19 15:06 | HOSPPROG ---
Hospitalist Progress Note Assessment/Plan: #acute on chronic abdominal pain #Nausea and vomiting #Dehydration #Cough, mild, likely URI #Hx of endometriosis, PCOS, Fibroids #Hx of abdominal hernia #Hx of cholecystectomy #Hx of idiopathic pancreatitis Plan: cont with symptomatic mgm IVF pain meds start PPI no e/o obstruction afebrile starting to feel better per her report check mg and replace as needed Objective: Vital Signs Temp Pulse Resp BP Pulse Ox 36.3 C 65 16 151/74 H 91 L 07/19/18 12:37 07/19/18 12:37 07/19/18 12:37 07/19/18 12:37 07/19/18 12:37 Laboratory Results 07/19/18 13:45 07/18/18 07/19/18 07/20/18 05:59 05:59 05:59 Output Total 200 Balance -200 - Physical Exam Constitutional: no apparent distress Eyes: PERRL Ears, Nose, Mouth, Throat: moist mucous membranes, hearing normal Cardiovascular: regular rate and rhythym, No edema Respiratory: no respiratory distress, no rales or rhonchi, clear to auscultation Gastrointestinal: normoactive bowel sounds, tenderness (mild RUQ), No jamison's sign, No rebound, No distension Neurologic: AAOx3 Psychiatric: interacting appropriately, not anxious, not encephalopathic Lymph, Heme, Immunologic: No petechiae ICD10 Worksheet Patient Problems: Problems Problem Status Onset RUQ abdominal pain Acute Vomiting Acute Abdominal pain Acute Intractable abdominal pain Acute Morbid obesity Acute Pancreatitis Acute
--- NOTE | 2018-07-19 16:14 | ASMTCMCOM ---
CM Note CM Note Notes: Pt's chart reveiwed for d/c planning. Pt is a 42y/o female with a past medical hx significant for endometriosis, fibroids, abdominal hernia and previous diagnosis of idiopathic pacreatitis who presented to the ED with c/of severe right upper quadrant pain associated with intractable nausea and vomiting. She has had multiple recommendations for follow up and medication trials, but has not followed through due to costs or other issues. 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 there are no orders for PT/OT. No CM needs identified at this time. CM to follow for changes. D/C Plan: Anticipate independent. Date Signed: 07/19/2018 04:13 PM Electronically Signed By:Romelia Reza
[2018-07-19] MEDS: KETOROLAC 15 MG/1 ML SDV IVP SCH (17:56)
[2018-07-20] MEDS: KETOROLAC 15 MG/1 ML SDV IVP SCH ×3 (00:38→12:37)
[2018-07-20] MEDS: ONDANSETRON 4 MG/2 ML VIAL IVP SCH ×3 (02:46→09:00)
[2018-07-20 07:13] VITALS: BP 131/78
[2018-07-20 08:25] LABS: PLATELET COUNT 258 10^3/uL (150-400)
[2018-07-20] MEDS: PANTOPRAZOLE SODIUM 40 MG VIAL IVP SCH (08:53)
--- NOTE | 2018-07-20 10:30 | PDDCSUM ---
Discharge Summary Discharge Summary: This is a 42 yo female with hx of chronic abd pain and endometriosis who was admitted with RUQ pain. She gets pain regularly (weekly) and it usually goes away. This pain was more intense. She was admitted under observation status. She was treated with bowel rest, NSAIDS ([place]), pain meds, antiemetics, and a PPI. She is now back to her baseline. She is asking for discharge. She will f/u with her PCP as well as [employer] [facility] #acute on chronic abdominal pain, now resolved #Nausea and vomiting, resolved #Dehydration, resolved #Cough, mild, likely URI #Hx of endometriosis, PCOS, Fibroids #Hx of abdominal hernia #Hx of cholecystectomy #Hx of idiopathic pancreatitis Exam: NAD AAOX3 RRR CTA B S/NT/ND MEDS: SEE MED REC TOTAL TIME SPENT ON D/C IS 35 MINS
[2018-07-20] MEDS ORDERED: POTASSIUM CL 10 MEQ TAB PO ONE (10:37)
--- NOTE | 2018-07-20 11:57 | ASDISCHSUM ---
Discharge Information Plan Status:Home with No Needs Medically Cleared to Leave: Discharge Date: CM D/C Disposition:Home, Routine, Self-Care ADT D/C Disposition:Home, Routine, Self-Care Projected Discharge Date: Transportation at D/C:Family Discharge Delay Reason: Follow-Up Date: Discharge Slot: Final Diagnosis: Placement Information Patient Contact Information Contact Name:FLORIAN Relationship:Son Address: City:[place] Alternate Phone: State/Zip Code:[place] Email: Financial Information Financial Class:Medicaid Primary Plan Desc:[employer]ICA[employer] Primary Plan Number:[id number] Secondary Plan Desc: Secondary Plan Number: Assessment Information LACE LACE Length of stay for Answers: 1 day current admission Acuity / Level of Answers: No Care: Did the patient have an inpatient admission? # of Emergency department Answers: 0 visits in the last 6 months Score: 1 Date Signed: 07/20/2018 11:55 AM Electronically Signed By:Romelia Reza [facility] CM Progress Note CM Note CM Note Notes: Pt's chart reveiwed for d/c planning. Pt is a 42y/o female with a past medical hx significant for endometriosis, fibroids, abdominal hernia and previous diagnosis of idiopathic pacreatitis who presented to the ED with c/of severe right upper quadrant pain associated with intractable nausea and vomiting. She has had multiple recommendations for follow up and medication trials, but has not followed through due to costs or other issues. 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 there are no orders for PT/OT. No CM needs identified at this time. CM to follow for changes. D/C Plan: Anticipate independent. Date Signed: 07/19/2018 04:13 PM Electronically Signed By:Romelia Reza Intervention Information Intervention Type:*Incorrect Registration Date of Service:07/19/2018 09:34 AM Patient Type:Inpatient Staff Member:TRAVIS [place] Courtney Hours: Discipline: Severity: Comment:
== END 2018-07-20 14:32 | disposition home or self-care (01) ==
LOC: INTOOBSV 07:01 → F1N 09:03
PROVIDERS: ADMIT Family Medicine; ATTEND Family Medicine
DX: R10.11 Right upper quadrant pain (principal); R11.2 Nausea with vomiting, unspecified; E86.9 Volume depletion, unspecified; Z90.49 Acquired absence of other specified parts of digestive tract; Z87.42 Personal history of other diseases of the female genital tract; Z87.891 Personal history of nicotine dependence
CPT/HCPCS: 90471; G0378; 96374; G0008; J1170; J1885; J2405

== ENCOUNTER 2018-09-13 22:07 | Observation (INO) | payer MEDICAID ==
--- NOTE | 2018-09-13 22:29 | EDPHY ---
General Time Seen by Provider: 09/13/18 22:22 Narrative: CHIEF COMPLAINT: Abdominal pain HISTORY OF PRESENT ILLNESS: Patient presents by private vehicle with complaints of abdominal pain. Onset is 2 days ago. This originally started several months ago, after her cholecystectomy. She describes it as "a pain attack." Right upper quadrant. It lasts for 10-40 minutes. It comes and goes are predictably. It is worse with palpation and movement. Does not radiate. Some nausea. No vomiting. No constipation or diarrhea. No fever. She has had this for several months with no formal diagnosis despite multiple admissions and imaging. She has no other associated complaints or modifying factors. REVIEW OF SYSTEMS: 10 systems were reviewed and negative with the exception of the elements mentioned in the history of present illness. PCP: Dr. Andree Loredo, transition to [facility] in October SPECIALISTS: Dr. Hang East PAST MEDICAL HISTORY: Cholecystitis, endometriosis, appendicitis, pancreatitis, PCOS PAST SURGICAL HISTORY: Appendectomy, cholecystectomy, diagnostic laparoscopy, x1 SOCIAL HISTORY: Never smoker. Lives independently. Works at [employer] here in [place] FAMILY HISTORY: Noncontributory EXAMINATION: Vitals: Triage VS reviewed General Appearance: Alert, no distress. Nontoxic. Conversing in full sentences. Head: normocephalic, atraumatic Eyes: Pupils equal and round, no conjunctival pallor or injection ENT, Mouth: Mucous membranes moist Neck: Normal inspection, supple, non-tender Respiratory: Lungs are clear to auscultation Cardiovascular: Regular rate and rhythm Gastrointestinal: Obese Abdomen is soft and nondistended. There is tenderness in the right upper quadrant epigastrium. No tympany rigidity. No guarding. No CVA tenderness. Bowel sounds present all 4 quadrants. Neurological: A&O, nonfocal, normal gait Skin: Warm and dry, no rash no petechiae or purpura Extremities: Nontender, no pedal edema Psychiatric: Mood and affect normal DIFFERENTIAL DIAGNOSES: Including but not limited to pancreatitis, gastritis, colitis MDM: 10:20 p.m. Intermittent right upper quadrant abdominal pain the patient describes as "pain attacks." Patient has had frequent episodes of the past few days. Her abdominal exam reveals mild right upper quadrant tenderness. No guarding. No tympany. No rigidity. Bowel sounds are present. No CVA tenderness. I have ordered laboratory studies and will review her previous charts. 11:30 p.m. Laboratory studies unremarkable. Patient re-evaluated. She reports that she had no relief from the morphine and her pain is increasing. I have ordered Toradol and Dilaudid for her. I will re-evaluate. 12:20 a.m. Patient re-evaluated. She reports no improvement of her pain at this time. I do feel it is reasonable to obtain a CT of the abdomen pelvis. She has not had imaging in the past 12 months. 1:05 p.m. Notified by radiologist Dr. Calhoun. We discussed the findings of the CT abdomen and pelvis. No acute findings. Some fatty liver changes and some right -sided constipation. I re-evaluated the patient her pain persist. I do feel it is reasonable to admit her for observation no the possibility of pain from endometriosis or unknown etiology. Patient is also fearful of going home and states that she would like to be observed. 1:09 a.m. Case discussed with hospitalist Dr. Hebert. She will admit the patient to her service. She is admitted stable condition. SUPERVISION: Patient was independently examined, but I discussed the case with my secondary supervising physician Dr. Lebron CONSULTATION: Hospitalist admission - History Smoking Status: Former smoker - Objective Vital Signs: Initial Vital Signs Temperature (C) 98.2 F 09/13/18 22:09 Heart Rate 89 09/13/18 22:09 Respiratory Rate 20 09/13/18 22:09 Blood Pressure 127/95 H 09/13/18 22:09 O2 Sat (%) 98 09/13/18 22:09 O2 Delivery Mode Room Air Allergies/Adverse Reactions: Penicillins Allergy (Unknown, Verified 09/13/18 22:09) Home Medications: Medication Instructions Recorded Ibuprofen [Motrin (*)] 400 - 600 mg PO Q8H PRN 10/06/17 Laboratory Results: Laboratory Results 09/13/18 22:25 09/13/18 22:25 09/13/18 09/13/18 22:25 22:25 WBC 8.56 10^3/uL 10^3/uL (3.80-9.50) RBC 4.46 10^6/uL 10^6/uL (4.18-5.33) Hgb 12.5 g/dL L g/dL (12.6-16.3) Hct 38.5 % % (38.0-47.0) MCV 86.3 fL fL (81.5-99.8) MCH 28.0 pg pg (27.9-34.1) MCHC 32.5 g/dL g/dL (32.4-36.7) RDW 12.2 % % (11.5-15.2) Plt Count 339 10^3/uL 10^3/uL (150-400) MPV 9.2 fL fL (8.7-11.7) Neut % (Auto) 57.5 % % (39.3-74.2) Lymph % (Auto) 25.2 % % (15.0-45.0) [place] % (Auto) 8.4 % % (4.5-13.0) Eos % (Auto) 8.1 % H % (0.6-7.6) Baso % (Auto) 0.7 % % (0.3-1.7) Nucleat RBC Rel Count 0.0 % % (0.0-0.2) Absolute Neuts (auto) 4.92 10^3/uL 10^3/uL (1.70-6.50) Absolute Lymphs (auto) 2.16 10^3/uL 10^3/uL (1.00-3.00) Absolute Monos (auto) 0.72 10^3/uL 10^3/uL (0.30-0.80) Absolute Eos (auto) 0.69 10^3/uL H 10^3/uL (0.03-0.40) Absolute Basos (auto) 0.06 10^3/uL 10^3/uL (0.02-0.10) Absolute Nucleated RBC 0.00 10^3/uL 10^3/uL (0-0.01) Immature Gran % 0.1 % % (0.0-1.1) Immature Gran # 0.01 10^3/uL 10^3/uL (0.00-0.10) Sodium 136 mEq/L mEq/L (135-145) Potassium 3.9 mEq/L mEq/L (3.5-5.2) Chloride 109 mEq/L mEq/L (97-110) Carbon Dioxide 22 mEq/l mEq/l (22-31) Anion Gap 5 mEq/L L mEq/L (6-14) BUN 23 mg/dL mg/dL (7-23) Creatinine 0.7 mg/dL mg/dL (0.6-1.0) Estimated GFR > 60 Glucose 116 mg/dL H mg/dL (70-100) Calcium 8.8 mg/dL mg/dL (8.5-10.4) Total Bilirubin 0.2 mg/dL mg/dL (0.1-1.4) Conjugated Bilirubin 0.2 mg/dL mg/dL (0.0-0.5) Unconjugated Bilirubin 0.0 mg/dL mg/dL (0.0-1.1) AST 24 IU/L IU/L (14-46) ALT 32 IU/L IU/L (9-52) Alkaline Phosphatase 62 IU/L IU/L (38-126) Total Protein 6.6 g/dL g/dL (6.3-8.2) Albumin 3.8 g/dL g/dL (3.5-5.0) Lipase 266 IU/L IU/L (23-300) Medications Given: Discontinued Medications Hydromorphone HCl (Dilaudid) 1 mg IVP EDNOW ONE Stop: 09/13/18 23:37 Last Admin: 09/13/18 23:53 Dose: 1 mg Sodium Chloride (Ns) 1,000 mls @ 0 mls/hr IV EDNOW ONE; Wide Open PRN Reason: Protocol Stop: 09/13/18 22:31 Last Admin: 09/13/18 22:42 Dose: 1,000 mls Ketorolac Tromethamine (Toradol) 15 mg IVP EDNOW ONE Stop: 09/13/18 23:37 Last Admin: 09/13/18 23:53 Dose: 15 mg Morphine Sulfate (Morphine) 4 mg IVP EDNOW ONE Stop: 09/13/18 22:34 Last Admin: 09/13/18 22:44 Dose: 4 mg Ondansetron HCl (Zofran) 4 mg IVP EDNOW ONE Stop: 09/13/18 22:34 Last Admin: 09/13/18 22:42 Dose: 4 mg Promethazine HCl (Phenergan) 6.25 mg IVP ONCE ONE Stop: 09/13/18 23:03 Last Admin: 09/13/18 23:04 Dose: 6.25 mg Departure - Departure Disposition: [facility] Clinical Impression: Acute abdominal pain Condition: Good Referrals: NONE *PRIMARY CARE P,. [Primary Care Provider] - As per Instructions
[2018-09-13] MEDS ORDERED: NS 1,000 ML IV ONE (22:30)
[2018-09-13] MEDS ORDERED: ONDANSETRON 4 MG/2 ML VIAL IVP ONE (22:33)
[2018-09-13 22:44] LABS: PLATELET COUNT 339 10^3/uL (150-400)
[2018-09-13] MEDS ORDERED: PROMETHAZINE HCL 25 MG/ML INJ IVP ONE (23:02)
[2018-09-13] MEDS ORDERED: KETOROLAC 15 MG/1 ML SDV IVP ONE (23:36)
[2018-09-13] MEDS ORDERED: HYDROmorphONE/DILAUDID 1 MG/ML INJ IVP ONE (23:36)
[2018-09-14] MEDS ORDERED: ONDANSETRON 4 MG/2 ML VIAL IVP PRN (02:10)
[2018-09-14] MEDS ORDERED: LORazepam 0.5 MG TAB PO PRN (02:10)
[2018-09-14] MEDS ORDERED: PROMETHAZINE HCL 25 MG/ML INJ IVP PRN (02:10)
[2018-09-14] MEDS ORDERED: ONDANSETRON DISINTEGRATING 4 MG TAB PO PRN (02:10)
[2018-09-14] MEDS ORDERED: ACETAMINOPHEN 325 MG TAB PO PRN (02:10)
[2018-09-14] MEDS ORDERED: HYDROCODONE/APAP 5/325 TAB PO PRN (02:10)
[2018-09-14] MEDS ORDERED: NS 1,000 ML IV SCH (02:15)
[2018-09-14] MEDS: KETOROLAC 15 MG/1 ML SDV IVP SCH ×2 (05:14→12:34)
[2018-09-14] MEDS ORDERED: MAGNESIUM HYDROXIDE 30 ML UDCUP PO PRN (07:20)
[2018-09-14] MEDS ORDERED: LACTULOSE 20 GM/30 ML UDCUP PO PRN (07:20)
[2018-09-14] MEDS ORDERED: POLYETHYLENE GLYCOL 3350 17 GM PKT PO PRN (07:20)
[2018-09-14] MEDS ORDERED: BISACODYL 10 MG SUPP PR PRN (07:20)
--- NOTE | 2018-09-14 08:30 | GHP ---
DATE OF ADMISSION: 09/14/2018 SOURCE: Patient provides history, appears reliable. EMR was reviewed and case discussed with ED pro vider. Patient known from her previous hospitalization in July. CHIEF COMPLAINT: Acute on chronic right upper quadrant abdominal pain. HISTORY OF PRESENT ILLNESS: This is a pleasant 43-year-old female with a past medical history signif icant for endometriosis, PCOS, history of fibroids, abdominal hernia, and previous diagnosis of idiop athic pancreatitis, who presents to the emergency department today with complaints of severe right up per quadrant abdominal pain, worsening over the last 2 weeks since onset of her period. Patient lyly es any fevers or chills but she has been having intermittent night sweats where she soaks her pajamas and has to change. She reports in the last 2 days her pain has acutely worsened. It is cramping, i ntermittent, and was occurring approximately every 10-40 minutes. However, patient reports that yest erd evening when she presented to the emergency department she was having exacerbations every 5 min utes. Patient reports pain is worse with any kind of movement or palpation. She reports several epi sodes of vomiting without hematemesis due to pain but no nausea. She reports some decreased stool ou tput but no hard stools. She denies any melena, hematochezia. Patient reports that her menstrual cy cles have been worsening since her last hospitalization. They are more painful, heavy. She has been previously diagnosed with fibroids and reports that upon her followup it was noted that they are enl arging. Patient states that Toradol helps the best with her pain. She did receive a dose of p.o. [facility] after admission to the floor and patient was able to sleep for several hours. She reports that she has not had any spasm pain since approximately 4 o'clock. It is now 7 a.m. REVIEW OF SYSTEMS: Ten systems reviewed, negative except as noted above. ALLERGIES: Penicillin. HOME MEDICATIONS: Ibuprofen p.r.n. PAST MEDICAL HISTORY: Significant for endometriosis diagnosed in 1998. Patient reports history of m ultiple adhesions during her cholecystectomy 2 years ago, which is the time of onset of her chronic r ight upper quadrant abdominal pain. She has a history of PCOS, morbid obesity, BMI of 49.6, steatosi s of the liver, idiopathic pancreatitis, previously diagnosed fibroids, multiple abdominal CT scans, and abdominal wall hernia. PAST SURGICAL HISTORY: Significant for cholecystectomy, appendectomy, tonsillectomy, adenoidectomy, exploratory laparotomy, , EGD, and colonoscopy. FAMILY HISTORY: Maternal aunt with history of neuroblastoma, uterine tumor. Another maternal aunt w ith history of lung cancer. Maternal grandfather with history of lung cancer. Father age 6 5 from alcohol and COPD complications. SOCIAL HISTORY: Patient quit smoking, previously had a 20 pack-year history. She does not drink any alcohol. Occasional marijuana but no other illicit drugs reported. CODE STATUS: Full. PHYSICAL EXAMINATION: VITAL SIGNS: Upon arrival to the emergency department, blood pressure 127/95, heart rate 89, respiratory rate 20, O2 saturation 98% on room air, temperature 36.8. Currently avai lable: Blood pressure is 117/83, heart rate 59, respiratory rate 16, O2 saturation 97% on 2 L by akila al cannula. GENERAL: No acute distress, pleasant, morbidly obese female, is lying quietly in bed. She does right abdomen intermittently. She does appear fatigued but she is awake, interac tive and pleasant. HEAD: Normocephalic, atraumatic. EYES: Extraocular muscles grossly intact. Pu pils equal, round. Decreased reactivity to light bilaterally but symmetric. No scleral icterus, con junctival injection. ENT: Mucous membranes appear moist. No oropharyngeal erythema or exudates. N o nasal discharge. NECK: Supple. Trachea midline. CV: Regular rate and rhythm. No murmurs, rubs or gallops appreciated. RESPIRATORY: Unlabored breathing. Lungs are clear to auscultation bilater ally, slightly diminished at the bases but limited exam secondary to body habitus. No wheezes, rales or rhonchi appreciated. ABDOMEN: Obese, soft. Patient with some minimal tenderness to palpation i n the right upper quadrant. No guarding. No rebound. Positive bowel sounds. : No suprapubic te nderness to palpation. No Blanchard catheter in place. EXTREMITIES: No cyanosis, clubbing or edema. P atient with 2+ pedal pulses bilaterally and symmetric. NEURO: Grossly nonfocal. No facial drooping . Moves all extremities. MUSCULOSKELETAL: Patient moves all extremities as noted above. Grossly n ormal exam. Strength intact. PSYCH: Patient pleasant and cooperative. Thought process, content an d questions are otherwise appropriate. LABORATORY STUDIES: WBC 8.56, H and H are 12.5 and 38.5, MCV of 86.3, platelet count is 339, neutrop hil percent 57.5. Sodium is 139, potassium is 3.9, chloride 109, CO2 is 22, anion gap of 5, BUN 23, creatinine 0.7. GF R greater than 60. Glucose 116, calcium is 8.8, total bilirubin 0.2, ALT is 32, AST is 24, alk phos 62, total protein is 6.6, albumin is 3.8, lipase 266. UA: Specific gravity of greater than 1.035, pH of 5.0, 1+ leuk esterase, RBCs 5-10, WBCs 5-10, other luna negative. CT abdomen and pelvis: Image report reviewed. Lungs showing some dependent subsegmental atelectatic changes, posterior lung bases. Linear scarring in the inferior lingula, no effusions. Enlarged fuentes er, no mass. Status post cholecystectomy. Stomach moderately distended with ingested debris. Small bowel appears normal. Right-sided constipation. Stable, small left periaortic lymph node near left renal hilum. ASSESSMENT AND PLAN: Pleasant -year-old female with history significant for intermittent episodes of intractable abdominal pain, thought possibly due to endometriosis, fibroid or hernia, pre sents with acute on chronic right upper quadrant abdominal pain. 1. Intractable abdominal pain. Patient currently reports that she just has a little bit of aching b ut the severe pain has appeared to resolve at this time. She received multiple narcotics as well as tramadol, which she preferred and requested before it was due. She did receive a dose of Ativan and was able to sleep for several hours. Patient was asleep during my initial attempt to visit with her and I returned at a later time, at which point patient reported that she had near resolution of her a bdominal pain. Patient reports that her insurance has changed and she is in process of establishing care with Gynecology for further evaluation of her abdominal pain as she feels it is associated with her menstrual cycles. She has previously had multiple procedures for evaluation including panendosco py, laparoscopy, and multiple imaging studies. Per review of her chart, patient has previously been tried on Bentyl, hyoscyamine. No evidence of pancreatitis. Normal lipase. Again, patient plans to follow up outpatient for additional evaluation. 2. Vomiting due to pain. Zofran received. No additional emesis. 3. Dehydration. Patient continues on gentle IV fluid hydration. Advance diet as tolerated after ov ernight bowel rest. Encourage oral hydration. 4. Chronic medical issues. Stable at this time. 5. Fluid, electrolyte, nutrition. IV fluids as noted above. Advancing diet. Encourage oral hydrat ion. 6. Code status is full. 7. Prophylaxis. SCDs. Encourage mobilization. Overall low risk. Consider anticoagulation if chaparrita ent should stay additional days but anticipate that she will be discharged later today. DISPOSITION: Patient admitted to observation status on the medical floor for continued treatment and management as noted above. /[id number]/MODL
[2018-09-14] MEDS ORDERED: SENNOSIDES/DOCUSATE SODIUM TAB PO SCH (09:00)
[2018-09-14 16:13] VITALS: BP 120/76
--- NOTE | 2018-09-14 16:48 | PDDCSUM ---
Discharge Summary Discharge Summary: Date of admission: 09/14/2018 Date of discharge: 09/14/2018 Discharge Dx: Abdominal pain, resolved. Constipation. H/O PCOS. H/O endometriosis. Multiple abdominal surgeries. Uterine fibroids. HPI: 43 yo presented to ED with acute abdominal pain, which she has had several episodes of in the past. She was admitted for further management. Hospital course: Pt was admitted for observation to the med/surg unit. She received IV morphine and IV toradol for pain. She feels the toradol is most helpful. Her CT showed constipation. She might have ongoing pain from endometriosis. We discussed constipation management and she is prescribed a bowel regimen at discharge. She is also precribed oral toradol as this is most helpful when she has these pain episodes. She will follow up with EMERGENCY MEDICINE PHYSICIAN at [facility] to determine next steps for management of this chronic issue. F/U: EMERGENCY MEDICINE PHYSICIAN and PCP at [facility] meds: toradol 10 mg po q6h prn #30 no refills, Senokot, miralax
== END 2018-09-14 17:00 | disposition home or self-care (01) ==
LOC: F1N 09-14 02:37
PROVIDERS: ADMIT Family Medicine; ATTEND Hospitalist
DX: R10.11 Right upper quadrant pain (principal); K59.00 Constipation, unspecified; D25.9 Leiomyoma of uterus, unspecified; R11.10 Vomiting, unspecified; E66.01 Morbid (severe) obesity due to excess calories; E86.0 Dehydration; Z68.42 Body mass index [BMI] 45.0-49.9, adult; Z87.42 Personal history of other diseases of the female genital tract; Z87.891 Personal history of nicotine dependence
CPT/HCPCS: 74177; G0378; 96374; J1170; J1885; J2270; J2405; J2550

== ENCOUNTER 2018-10-25 21:06 | Emergency (ER) | payer MEDICAID ==
[2018-10-25] MEDS ORDERED: ONDANSETRON 4 MG/2 ML VIAL ONE (21:19)
--- NOTE | 2018-10-25 21:20 | EDPHY ---
H & P Stated Complaint: RUQ pain, nausea, and vomiting since this am. Time Seen by Provider: 10/25/18 21:19 HPI/ROS: HPI: This is a 43-year-old female who presents with Chief Complaint: RUQ pain, nausea, and vomiting since this am. Location: GI Quality: Nausea vomiting diarrhea Duration: Since this a.m. Signs and Symptoms: no fever, + nausea, + vomiting, no hematemesis, no blood in stool, no abdominal bloating, + diarrhea, no back pain, no urinary symptoms, no vaginal bleeding/discharge, no indigestion, no chest pain, no shortness of breath Timing: Acute, intermittent episodes Severity: Moderate Context: Patient has a history of chronic abdominal pain, endometriosis, pancreatitis, cholecystectomy, appendectomy presents with waking up this morning with sudden onset of nausea and 5-7 episodes of vomiting and now just dry heaves accompanied by 2-3 loose watery stools. 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 Patient reports that she has right upper quadrant epigastric cramping that is nonradiating in nature. LMP 2-3 weeks ago. [place] patient. Modifying Factors: None Comment: ROS: A comprehensive 10 system review of systems is otherwise negative aside from elements mentioned in the history of present illness. MEDICAL/SURGICAL/SOCIAL HISTORY: Medical/surgical history: Appendectomy, cholecystectomy, pancreatitis, c- section, endometriosis, PCOS Social history: Former smoker. Family history noncontributory. CONSTITUTIONAL: Obese, nontoxic-appearing white female, awake and alert, no obvious distress HEENT: Atraumatic and normocephalic, PERRL, EOMI. Nares patent; no rhinorrhea; no nasal mucosal edema. Tympanic membranes clear. Oropharynx clear, no exudate and moist pink mucosa. Airway patent. No lymphadenopathy. No meningismus. Cardiovascular: Normal S1/S2, regular rate, regular rhythm, without murmur rub or gallop. PULMONARY/CHEST: Symmetrical and nontender. Clear to auscultation bilaterally. Good air movement. No accessory muscle usage. ABDOMEN: Soft, nondistended, mild epigastric and right upper quadrant tenderness to deep palpation no rebound, no guarding, no peritoneal signs, no masses or organomegaly. No CVAT. Hyperactive bowel sounds heard x4 quadrants EXTREMITIES: 2/2 pulses, strength 5/5, no deformities, no clubbing, no cyanosis or edema. NEUROLOGICAL: no focal neuro deficits. GCS 15. SKIN: Warm and dry, no erythema. no rash. Good capillary refill. Source: Patient Exam Limitations: No limitations - Personal History LMP (Females 10-55): 15-21 Days Ago Current Tetanus Diphtheria and Acellular Pertussis (TDAP): Unsure - Medical/Surgical History Hx Asthma: No Hx Chronic Respiratory Disease: No Hx Diabetes: No Hx Cardiac Disease: No Hx Renal Disease: No Hx Cirrhosis: No Hx Alcoholism: No Hx HIV/AIDS: No Hx Splenectomy or Spleen Trauma: No Other PMH: Appendectomy, cholecystectomy, pancreatitis, , endometriosis , PCOS. - Social History Smoking Status: Former smoker Constitutional: Initial Vital Signs Temperature (C) 36.3 C 10/25/18 21:14 Heart Rate 99 10/25/18 21:14 Respiratory Rate 18 10/25/18 21:14 Blood Pressure 167/100 H 10/25/18 21:14 O2 Sat (%) 98 10/25/18 21:14 O2 Delivery Mode Room Air Allergies/Adverse Reactions: Penicillins Allergy (Unknown, Verified 09/13/18 22:09) Home Medications: Medication Instructions Recorded Ketorolac Tromethamine [Toradol 1 tab PO Q6 PRN 5 Days #30 tab 09/14/18 10mg tab] Polyethylene Glycol 3350 [Miralax 17 gm PO DAILY PRN pkt 09/14/18 17 gm (*)] Sennosides/Docusate Sodium 1 - 2 tab PO BID #60 tab 09/14/18 [Senokot-S] Promethazine HCl 25 mg PO Q6 PRN #10 tablet 10/25/18 Medical Decision Making ED Course/Re-evaluation: Vital signs reviewed and show elevated blood pressure upon arrival. IV access, laboratory studies, GI pathogen panel ordered Given 2 L normal saline, IV promethazine 12.5 mg, IV Toradol 30 mg, IV Reglan 10 mg, IV Benadryl 25 mg 2300: Reassessed patient who reports relief of nausea and discomfort. Sleeping soundly. No episodes of emesis or diarrhea. Still unable to obtain stool sample. 2345: Reassessed patient who reports that she feels comfortable to be discharged home. Prepack for Zofran and prefer prescription for Phenergan provided. Patient is still unable to give stool sample for GI pathogen panel. Work excuse provided. This patient was seen under the supervision of my secondary supervising physician. I evaluated care for this patient with attending. Discussed this patient with Dr. Michel. Differential Diagnosis: Abdominal pain including but not limited to appendicitis, cholecystitis, gastritis and urinary tract infection. - Data Points Laboratory Results: Laboratory Results 10/25/18 21:35 10/25/18 21:35 10/25/18 10/25/18 10/25/18 21:35 21:35 21:35 WBC 14.91 10^3/uL H 10^3/uL (3.80-9.50) RBC 5.54 10^6/uL H 10^6/uL (4.18-5.33) Hgb 16.0 g/dL g/dL (12.6-16.3) Hct 48.0 % H % (38.0-47.0) MCV 86.6 fL fL (81.5-99.8) MCH 28.9 pg pg (27.9-34.1) MCHC 33.3 g/dL g/dL (32.4-36.7) RDW 12.3 % % (11.5-15.2) Plt Count 388 10^3/uL 10^3/uL (150-400) MPV 9.3 fL fL (8.7-11.7) Neut % (Auto) 78.0 % H % (39.3-74.2) Lymph % (Auto) 14.2 % L % (15.0-45.0) [place] % (Auto) 6.2 % % (4.5-13.0) Eos % (Auto) 1.0 % % (0.6-7.6) Baso % (Auto) 0.3 % % (0.3-1.7) Nucleat RBC Rel Count 0.0 % % (0.0-0.2) Absolute Neuts (auto) 11.65 10^3/uL H 10^3/uL (1.70-6.50) Absolute Lymphs (auto) 2.11 10^3/uL 10^3/uL (1.00-3.00) Absolute Monos (auto) 0.92 10^3/uL H 10^3/uL (0.30-0.80) Absolute Eos (auto) 0.15 10^3/uL 10^3/uL (0.03-0.40) Absolute Basos (auto) 0.04 10^3/uL 10^3/uL (0.02-0.10) Absolute Nucleated RBC 0.00 10^3/uL 10^3/uL (0-0.01) Immature Gran % 0.3 % % (0.0-1.1) Immature Gran # 0.04 10^3/uL 10^3/uL (0.00-0.10) Sodium 138 mEq/L mEq/L (135-145) Potassium 4.0 mEq/L mEq/L (3.5-5.2) Chloride 109 mEq/L mEq/L (97-110) Carbon Dioxide 17 mEq/l L mEq/l (22-31) Anion Gap 12 mEq/L mEq/L (6-14) BUN 19 mg/dL mg/dL (7-23) Creatinine 0.8 mg/dL mg/dL (0.6-1.0) Estimated GFR > 60 Glucose 134 mg/dL H mg/dL (70-100) Calcium 9.7 mg/dL mg/dL (8.5-10.4) Total Bilirubin 0.8 mg/dL mg/dL (0.1-1.4) Conjugated Bilirubin 0.4 mg/dL mg/dL (0.0-0.5) Unconjugated Bilirubin 0.4 mg/dL mg/dL (0.0-1.1) AST 35 IU/L IU/L (14-46) ALT 41 IU/L IU/L (9-52) Alkaline Phosphatase 74 IU/L IU/L (38-126) Total Protein 8.3 g/dL H g/dL (6.3-8.2) Albumin 4.7 g/dL g/dL (3.5-5.0) Lipase 192 IU/L IU/L (23-300) Beta HCG, Qual NEGATIVE Medications Given: Discontinued Medications Diphenhydramine HCl (Benadryl Injection) 25 mg IVP EDNOW ONE Stop: 10/25/18 21:28 Last Admin: 10/25/18 21:38 Dose: 25 mg Sodium Chloride (Ns) 1,000 mls @ 0 mls/hr IV EDNOW ONE; Wide Open PRN Reason: Protocol Stop: 10/25/18 21:27 Last Admin: 10/25/18 21:39 Dose: 1,000 mls Sodium Chloride (Ns) 1,000 mls @ 0 mls/hr IV EDNOW ONE; Wide Open PRN Reason: Protocol Stop: 10/25/18 21:27 Last Admin: 10/25/18 21:40 Dose: 1,000 mls Ketorolac Tromethamine (Toradol) 30 mg IVP EDNOW ONE Stop: 10/25/18 21:27 Last Admin: 10/25/18 21:39 Dose: 30 mg Metoclopramide HCl (Reglan Injection) 10 mg IVP EDNOW ONE Stop: 10/25/18 21: Last Admin: 10/25/18 21:38 Dose: 10 mg Promethazine HCl (Phenergan) 12.5 mg IVP EDNOW ONE Stop: 10/25/18 21:27 Last Admin: 10/25/18 21:39 Dose: 12.5 mg Departure - Departure Disposition: Home, Routine, Self-Care Clinical Impression: Gastroenteritis due to norovirus Condition: Good Instructions: Gastroenteritis (ED) Additional Instructions: Consume a minimum of 8-10 glasses of water or electrolyte fluid replacement drinks that include Gatorade, Powerade, Pedialyte. Eat a bland diet for the next 48 hours and then slowly advance as tolerated. Take Zofran 1 tab every 4 hours as needed for nausea, vomiting. Take promethazine 1 tab every 6 hr needed for nausea, vomiting not relieved by Zofran. Return to the Emergency Room if symptoms do not resolve in the next 72 hours, you spike a fever > 102 F, or experience intractable abdominal pain/nausea/ vomiting. Referrals: [facility] ,. [Edm Groups for Call Sched] - As per Instructions Stand Alone Forms: Work Excuse Prescriptions: Promethazine HCl 25 mg PO Q6 PRN #10 tablet PRN Reason: Nausea/Vomiting, Use 2nd
[2018-10-25] MEDS ORDERED: PROMETHAZINE HCL 25 MG/ML INJ IVP ONE (21:26)
[2018-10-25] MEDS ORDERED: NS 1,000 ML IV ONE ×2 (21:26)
[2018-10-25] MEDS ORDERED: METOCLOPRAMIDE 10 MG/2 ML VIAL IVP ONE (21:26)
[2018-10-25] MEDS ORDERED: KETOROLAC 30 MG/1 ML SDV IVP ONE (21:26)
[2018-10-25 21:53] LABS: PLATELET COUNT 388 10^3/uL (150-400)
[2018-10-25 23:29] VITALS: BP 101/55
[2018-10-25] MEDS ORDERED: ONDANSETRON 4MG PREPACK#2 BTL TAKEHOME ONE (23:34)
== END 2018-10-25 23:45 | disposition home or self-care (01) ==
DX: A08.4 Viral intestinal infection, unspecified (principal)
CPT/HCPCS: 96374; J1200; J1885; J2405; J2550; J2765

== ENCOUNTER 2019-01-25 20:27 | Emergency (ER) | payer MEDICAID, OTHER ==
[2019-01-25] MEDS ORDERED: IPRATROPIUM/ALBUTEROL 3 ML DEYVIAL IH ONE (20:40)
--- NOTE | 2019-01-25 21:07 | EDPHY ---
General Time Seen by Provider: 01/25/19 20:41 Narrative: CLINICAL IMPRESSION: Bronchitis ASSESSMENT/PLAN: 43-year-old female with no underlying cardiopulmonary disease presents to the emergency department with 5 days of URI symptoms, cough, chest tightness, shortness of breath and congestion. On arrival, patient is not tachypneic, hypoxic, or in respiratory distress. She has no clinical signs to suggest bacterial upper or lower respiratory disease. She received a DuoNeb with improvement in her chest tightness. Lungs are clear. Chest x-ray with no evidence of acute cardiopulmonary disease or pneumonia. She was given an albuterol inhaler with spacer, prescription for albuterol solution for her home neb machine, prednisone DIFFERENTIAL DX: Differential includes but not limited to bronchitis, viral URI with cough, pneumonia, reactive airway disease ED PROCEDURES: See lab and/or imaging results below ED COURSE: Chest x-ray with no evidence of acute pulmonary infiltrate or pneumonia. CHIEF COMPLAINT: Cough, congestion, chest tightness HPI: 43-year-old female presents to the emergency department with 5 days of cough, chest tightness, shortness of breath, congestion and sore throat. Patient has been traveling recently in believe she became ill while traveling. No cardiopulmonary history or asthma. She has been trying some [id number] therapies without significant improvement. She does have a history of pneumonia. She does not currently take any inhalers but does have a nebulizer machine at home. No reports of fever or chills. PAST MEDICAL HISTORY: See nurse triage note See triage summary and nurse notes for addition applicable history Pertinent Past Surgical History: See nurse triage Family History: Noncontributory Social History: Nonsmoker REVIEW OF SYSTEMS: A full 10 point review of systems was negative except for those mentioned in HPI. PHYSICAL EXAM: General Appearance: Alert, oriented, appropriate, cooperative, NAD, well hydrated, non-toxic appearing, VSS, afebrile no hypoxia. HEENT: TMs are clear bilaterally no perforation or FB, no injection, no evidence of serous or mucopurulent otitis. Oropharynx clear is no erythema or exudates, no tonsillar hypertrophy or asymmetry. Dentition without abnormality. Eyes: PERRLA, no acute vision change, nystagmus, swelling, discharge, pain or photosensitivity. Conjunctiva pink, no pallor or injection Neck: Supple, nontender, no lymphadenopathy, no midline pain, FROM, no meningismus. Respiratory: There are no retractions, lungs are clear to auscultation. No expiratory wheezing or stridor appreciated. Cardiac: Regular rate and rhythm, no murmurs or gallops. Skin: Warm, dry, no rashes, no nodules on palpation. MEDICAL DECISION MAKING: Patient was seen independently. Secondary supervising physician at time of evaluation was: Dr Weston . Diagnosis: Bronchitis. New, requires workup Summary: See Assessment and Plan for summary of ED visit Independent visualization of images, tracing, or specimens: Yes. Patient Progress: Stable for discharge. - Diagnostics Imaging Results: Imaging Impressions Chest X-Ray 01/25/19 20:40 Impression: Question minimal bronchitis. No other findings for acute cardiopulmonary abnormality. - History Smoking Status: Former smoker - Objective Vital Signs: Initial Vital Signs Temperature (C) 37.2 C 01/25/19 20:31 Heart Rate 86 01/25/19 20:31 Respiratory Rate 20 01/25/19 20:31 Blood Pressure 128/100 H 01/25/19 20:31 O2 Sat (%) 95 01/25/19 20:31 O2 Delivery Mode Room Air Allergies/Adverse Reactions: Penicillins Allergy (Unknown, Verified 01/25/19 20:30) Home Medications: Medication Instructions Recorded Albuterol Sulfate [ALBUTEROL 1.25 mg IH Q4 PRN #30 01/25/19 SULFATE 1.25 MG/3 ML] Toradol 10mg tab 01/25/19 predniSONE [Prednisone] 40 mg PO DAILY #20 tablet 01/25/19 Medications Given: Discontinued Medications Hydrocodone Bitart/Acetaminophen ([place] 5/325mg Prepack#6) 1 btl TAKEHOME EDNOW ONE Stop: 01/25/19 21:34 Last Admin: 01/25/19 22:35 Dose: 1 btl Albuterol Sulfate (Proventil Inh Prepack) 1 mdi TAKEHOME EDNOW ONE Stop: 01/25/19 21:34 Last Admin: 01/25/19 22:35 Dose: 1 mdi Albuterol/Ipratropium (Duoneb) 3 ml IH EDNOW ONE Stop: 01/25/19 20:41 Last Admin: 01/25/19 20:57 Dose: 3 ml Oxymetazoline HCl (Afrin Nasal [place]) 2 sprays EACHNARE EDNOW ONE Stop: 01/25/19 21:34 Last Admin: 01/25/19 22:36 Dose: 2 sprays Departure - Departure Disposition: Home, Routine, Self-Care Clinical Impression: Bronchitis Condition: Good Instructions: Hydrocodone/Acetaminophen (By mouth), Albuterol (By breathing), Acute Bronchitis (ED) Additional Instructions: DISCHARGE INSTRUCTIONS FROM YOUR DOCTOR Thank you for visiting our emergency department today. You were treated by a physician registered dental assistant rda today and your case was reviewed with our ED Attending physician. Please keep in mind that discharge from the emergency department does not mean that there is nothing wrong - it simply means that we have not identified an emergency condition that requires further evaluation or treatment in the hospital. You should always plan to follow up with primary care for re- evaluation of your condition in the next 2-3 days. If you have been referred to a specialist, please call as soon as possible (today or tomorrow) to schedule your follow up appointment at the appropriate time. PLEASE START ORAL STEROIDS TOMORROW. CHEST X-RAY SHOWS NO SIGN OF PNEUMONIA. USE ALBUTEROL INHALER OR NEBULIZER EVERY 4 HR NEEDED. USE AFRIN IN HER NOSE FOR CONGESTION FOR NO MORE THAN 3-5 DAYS. KEEP BODY ACHES AND FEVERS CONTROLLED WITH TYLENOL AND IBUPROFEN. GET PLENTY OF REST, STAY WELL-HYDRATED. A TAKE-HOME PACK OF HYDROCODONE WAS GIVEN FOR COUGH IF NEEDED. RETURN TO THE EMERGENCY DEPARTMENT FOR WORSENING OR SEVERE COUGH, CHEST PAIN OR TIGHTNESS, INCREASED WHEEZING, HIGH FEVERS, OR ANY OTHER CONCERNS. People present with illnesses and injuries in different ways, and it is always possible that we have missed something. You may always return for re-evaluation if symptoms worsen or if they are not improving or if you develop new/different symptoms. Again, thank you for choosing our emergency department. We hope that you feel better. Referrals: NONE *PRIMARY CARE P,. [Primary Care Provider] - As per Instructions Rohan Richard MD [Medical Doctor] - 2-3 days, call for appt. Prescriptions: Albuterol Sulfate [ALBUTEROL SULFATE 1.25 MG/3 ML] 1.25 mg IH Q4 PRN #30 PRN Reason: Wheezing predniSONE [Prednisone] 40 mg PO DAILY #20 tablet
[2019-01-25] MEDS ORDERED: ALBUTEROL INH PREPACK MDI TAKEHOME ONE (21:33)
[2019-01-25] MEDS ORDERED: OXYMETAZOLINE 30 ML NASAL SPRAY EACHNARE ONE (21:33)
[2019-01-25] MEDS ORDERED: HYDROCOD/APAP 5/325 PREPACK#6 BTL TAKEHOME ONE (21:33)
[2019-01-25 22:43] VITALS: BP 130/87
== END 2019-01-25 22:44 | disposition home or self-care (01) ==
DX: J40 Bronchitis, not specified as acute or chronic (principal)